=== PATIENT | female | born 1965 | race Caucasian/White ===

== ENCOUNTER 2020-05-28 09:06 | Outpatient (REF) | payer OTHER, SELFPAY ==
--- NOTE | 2020-05-28 08:15 | PAPFT_PTH ---
PATIENT: Meme Olson [facility] U[facility][id number] AGE/SX: 54/F ROOM: RE05/28/[address]: Tayler Frazier : 1965 BED: DIS: 05/28/2020 SPEC #: [id number] RECD: 05/28/20 12:51 STATUS: MAURA RETalia #: [id number] KINGSLEY: 05/28/20 08:[address]: Tayler Frazier DEPT: [facility] Cytology RECD BY: Norma Helton Tissues: 1 - CX/ENDOCX FOR PAP SMEARS Procedures: PAP THIN PREP/[facility] Screening HPV DNA PROBE Comments: [id number]
== END 2020-05-28 09:07 | disposition home or self-care (01) ==
LOC: NCHCN 09:06
PROVIDERS: PCP Registered Nurse; Visit Provider Registered Nurse
DX: Z12.4 Encounter for screening for malignant neoplasm of cervix (principal); Z11.51 Encounter for screening for human papillomavirus (HPV)
CPT/HCPCS: 88142; 87624

== ENCOUNTER 2021-06-18 17:37 | Outpatient (REF) | payer OTHER, SELFPAY ==
[2021-06-18 20:39] LABS: Anion Gap 8.2 mmol/L (3-11); BUN 13 mg/dL (7-18); CO2 27.8 mmol/L (21.0-32.0); CREATININE 0.8 mg/dL (0.55-1.02); Calcium 8.5 mg/dL (8.5-10.1); Calculated LDL 130 mg/dL (<100); Chloride 105 mmol/L (98-107); Cholesterol 212 mg/dL (<200); Glucose 139 mg/dL (74-106); HDL Cholesterol 53 mg/dL (40-60); Potassium 3.9 mmol/L (3.5-5.1); Sodium 141 mmol/L (136-145); Triglyceride 145 mg/dL (<150)
== END 2021-06-18 17:38 | disposition home or self-care (01) ==
LOC: NCHCN 17:37
PROVIDERS: PCP Registered Nurse; Visit Provider Registered Nurse
DX: Z00.00 Encounter for general adult medical examination without abnormal findings (principal)
CPT/HCPCS: 80048; 80061

== ENCOUNTER 2024-06-19 11:54 | Outpatient (REF) | payer OTHER, SELFPAY ==
[2024-06-19 15:48] LABS: Calculated LDL 99 mg/dL (<100); Cholesterol 183 mg/dL (<200); HDL Cholesterol 77 mg/dL (>or=50); Triglyceride 39 mg/dL (<150)
== END 2024-06-19 11:55 | disposition home or self-care (01) ==
LOC: NCHCN 11:54
PROVIDERS: PCP Registered Nurse; Visit Provider Family Medicine
DX: E78.5 Hyperlipidemia, unspecified (principal)
CPT/HCPCS: 80061